=== PATIENT | female | born 1950 | race Caucasian/White ===

== ENCOUNTER 2016-06-12 06:01 | Day surgery (SDC) | payer MEDICARE, OTHER ==
[~2016-06-12 06:01] MED LIST: ACET500CAP PO; ASAB PO; CYMBALTA60 PO; DSS PO; FOLIC PO; FOSAMAX70 MG PO; GLUCPH PO; IBU-200200 MG PO; IBU400 PO; LEVOTHROID175 MCG PO; LEVOTHYROXIN175 MCG PO; MTX2.5 PO; NEUR300 PO; PCET PO; PRILO PO; V5 PO; VITAMIN D31000 UNIT PO; [UNRECOGNIZED DRUG - REMARK] PO
[2016-11-01] MEDS ORDERED: LEVOTHYROXIN200 MCG PO (16:45)
== END 2016-06-12 23:59 | disposition home health service (06) ==
LOC: SDC 06:01
PROVIDERS: Orthopaedic Surgery
PROC: B01BZZZ Fluoroscopy of Spinal Cord (ICD-10-PCS; 2016-06-12)
PROC: 3E0R3BZ Introduction of Anesthetic Agent into Spinal Canal, Percutaneous Approach (ICD-10-PCS; principal; 2016-06-12 07:30)
DX: M54.16 Radiculopathy, lumbar region (principal); E11.9 Type 2 diabetes mellitus without complications; G47.30 Sleep apnea, unspecified; E03.9 Hypothyroidism, unspecified; M06.9 Rheumatoid arthritis, unspecified; K21.9 Gastro-esophageal reflux disease without esophagitis; Z87.442 Personal history of urinary calculi; Z98.890 Other specified postprocedural states; Z99.81 Dependence on supplemental oxygen; Z87.891 Personal history of nicotine dependence; Z86.010 Personal history of colon polyps
CPT/HCPCS: 82962; J2250; J3010; Q9967